=== PATIENT | male | born 1970 | race Caucasian/White ===

== ENCOUNTER 2020-07-18 12:55 | Outpatient (RCR) | payer OTHER, SELFPAY ==
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
--- NOTE | 2020-07-20 15:48 | PCPTNOTE ---
Due to the continued pain, weakness, decreased range of motion, and poor activity tolerance, I would recommend Mr. Meza remain off work for 2 more weeks to allow time for rehab through Physical Therapy. Please feel free to contact me with any questions or concerns regarding his current condition or care. Thank you, Jamey Nazario DPT
--- NOTE | 2020-08-04 15:44 | PCPTNOTE ---
To whom it may concern, Mr. Meza is still experiencing significant pain in the neck with AROM activities that will be performed on a daily basis should he return to work at this time. It is my suggested medical opinion to withhold Mr. Meza from returning to work until the conclusion of his skilled PT treatments. Thank you, Jamey Nazario DPT
--- NOTE | 2020-09-01 09:48 | PCPTNOTE ---
09/01/20- pt did not show for 8am appointment today. pt was called and vm left to reschedule.-
--- NOTE | 2020-11-07 13:24 | PCPTNOTE ---
11/07/20 - patient has not been to therapy in over 2 months. he has been dc'd from skilled PT services and all progress towards goals will be taken from his most recent evaluation/note.
== END 2020-08-28 23:59 | disposition home or self-care (01) ==
LOC: CHSPT 12:55
DX: M54.2 Cervicalgia (principal)
CPT/HCPCS: 97014; 97110; 97140; 97161; G0283

== ENCOUNTER 2023-04-24 11:06 | Outpatient (CLI) | payer BC, SELFPAY ==
--- NOTE | ~2023-04-24 | XR_ITS ---
Left Knee Technique: AP, lateral, notch, and sunrise views were obtained. Clinical History: Pain Findings: No fracture or dislocation is seen. Osseous alignment is anatomic. Joint spaces are preserv ed without degenerative or erosive change. Soft tissues are unremarkable. No joint effusion is seen. Impression: Unremarkable left knee radiographs. Reviewed, dictated and finalized at location . Impression: Unremarkable left knee radiographs.
== END 2023-04-24 11:07 ==
PROVIDERS: PCP Family Medicine; Visit Provider Family Medicine
DX: M25.562 Pain in left knee (principal)
CPT/HCPCS: 73564

== ENCOUNTER 2023-05-03 07:25 | Outpatient (CLI) | payer BC, MEDICAID, SELFPAY ==
--- NOTE | ~2023-05-03 | MR_ITS ---
MRI of the left knee Clinical history: Internal derangement Technique: Coronal proton density and proton density-weighted images, sagittal proton-density and T2 fat-sat images, and axial proton-density fat-saturated images were acquired. Findings: Anterior and posterior cruciate ligaments are intact. Medial collateral ligament and the la teral collateral ligament complex are intact. Popliteus tendon is intact. No lateral meniscal tear identified. There is a vertical tear of the posterior horn of the medial men iscus. Articular cartilage is well preserved throughout the knee. Bone marrow signals are unremarkable. Extensor mechanism is intact. No joint effusion or Sheppard's cyst. Impression: Vertical tear of the posterior horn of the medial meniscus. Reviewed, dictated and finalized at location M. Impression: Vertical tear of the posterior horn of the medial meniscus.
== END 2023-05-03 07:26 | disposition home or self-care (01) ==
PROVIDERS: PCP Family Medicine; Visit Provider Family Medicine
DX: S83.242A Other tear of medial meniscus, current injury, left knee, initial encounter (principal); X58.XXXA Exposure to other specified factors, initial encounter
CPT/HCPCS: 73721

== ENCOUNTER 2023-05-12 07:53 | Outpatient (CLI) | payer BC, MEDICAID, SELFPAY ==
--- NOTE | 2023-05-12 07:55 | ECG_ITS ---
Measurements Intervals [place] Rate: 84 P: 23 MI: 127 QRS: 28 QRSD: 96 T: 30 QT: 344 QTc: 407 Interpretive Statements SINUS RHYTHM NORMAL ECG NO PREVIOUS ECG AVAILABLE FOR COMPARISON Electronically Signed On 05-12-2023 17:28:01 CDT by Eliseo Stone M.D.
[2023-05-12 08:48] LABS: Anion Gap 8 mmol/L (8-16); Blood Urea Nitrogen 15 mg/dL (7-18); Calcium 9.2 mg/dL (8.5-10.1); Carbon Dioxide 30 mmol/L (21-32); Chloride 105 mmol/L (98-108); Estimated Glomerular Filt Rate > 60; Glucose 84 mg/dL (70-99); Osmolality Calculated 295 mOsm/kg (285-295); Potassium 4.4 mmol/L (3.5-5.1); Sodium 143 mmol/L (136-145)
== END 2023-05-12 07:54 | disposition home or self-care (01) ==
PROVIDERS: PCP Family Medicine; Visit Provider Anesthesiology
DX: Z01.818 Encounter for other preprocedural examination (principal); E11.9 Type 2 diabetes mellitus without complications
CPT/HCPCS: 36415; 80048; 93005

== ENCOUNTER 2023-06-21 07:51 | Outpatient (CLI) | payer BC, MEDICAID, SELFPAY ==
[2023-06-21 08:08] LABS: Basophils Absolute Auto 0.03 K/mm3 (0.00-0.10); Basophils Percent Auto 0.5 % (0.0-1.0); Eosinophils Absolute Auto 0.19 K/mm3 (0.02-0.50); Eosinophils Percent Auto 3.4 % (1.0-6.0); Hemoglobin 14.1 g/dL (14.0-18.0); Immature Granulocyte Absolute 0.01 K/mm3 (0.00-0.00); Immature Granulocyte Percent A 0.2 % (0.0-0.0); Lymphocytes Absolute Auto 2.13 K/mm3 (1.10-4.50); Lymphocytes Percent Auto 37.8 % (18.0-42.0); Mean Corpuscular HGB Conc 34.4 g/dL (32.0-36.0); Mean Corpuscular Hemoglobin 29.4 pg (27.0-31.0); Mean Corpuscular Volume 85.6 fL (78.0-102.0); Mean Platelet Volume 9.3 fl (8.7-11.0); Monocytes Absolute Auto 0.45 K/mm3 (0.10-0.90); Neutrophils Absolute Auto 2.8 K/mm3 (1.7-7.2); Neutrophils Percent Auto 50.1 % (50.0-70.0); Platelet Count Result 299 K/mm3 (150-420); Red Blood Count 4.79 M/mm3 (4.70-6.10); Red Cell Distribution Width 11.4 % (11.6-14.4); White Blood Count 5.6 K/mm3 (4.8-10.8)
[2023-06-21 08:14] LABS: Creatinine Urine 149.66 mg/dL (40-278); MALB Creatinine Ratio 8.6 mg/g (0-30); Microalbumin Urine Random < 13.0 mg/L
[2023-06-21 08:26] LABS: Rheumatoid Factor Screen Negative (Negative)
[2023-06-21 08:48] LABS: Alanine Aminotransferase 58 U/L (16-63); Albumin Level 4.3 g/dL (3.4-5.0); Alkaline Phosphatase 68 U/L (46-116); Anion Gap 8 mmol/L (8-16); Aspartate Amino Transferase 29 U/L (15-37); Bilirubin,Total 0.5 mg/dL (0.00-1.00); Blood Urea Nitrogen 18 mg/dL (7-18); Calcium 8.4 mg/dL (8.5-10.1); Carbon Dioxide 29 mmol/L (21-32); Chloride 105 mmol/L (98-108); Cholesterol 150 mg/dL (0-200); Estimated Glomerular Filt Rate > 60; Glucose 85 mg/dL (70-99); HDL Direct 67 mg/dL (40-60); LDL Cholesterol Calculated 73 mg/dL (<130); Osmolality Calculated 294 mOsm/kg (285-295); Prostate Specific Antigen 0.4 ng/mL (< OR = 4.0); Sodium 142 mmol/L (136-145); Total Protein 7.2 g/dL (6.4-8.2); Triglycerides 52 mg/dL (0-150)
[2023-06-21 08:53] LABS: Thyroid Stimulating Hormone Reflex 2.59 u/IU/mL (0.36-3.74)
== END 2023-06-21 07:52 | disposition home or self-care (01) ==
LOC: CHSLAB 07:53
PROVIDERS: PCP Family Medicine; Visit Provider Family Medicine
DX: E03.9 Hypothyroidism, unspecified (principal); E11.9 Type 2 diabetes mellitus without complications; R53.83 Other fatigue; Z12.5 Encounter for screening for malignant neoplasm of prostate; Z13.220 Encounter for screening for lipoid disorders; Z13.228 Encounter for screening for other metabolic disorders; M25.50 Pain in unspecified joint
CPT/HCPCS: 36415; 80053; 80061; 82043; 83036; 84153; 84443; 85025; 86337; 86430; G0103

== ENCOUNTER 2025-01-22 09:02 | Outpatient (CLI) | payer OTHER, SELFPAY ==
--- OUTSIDE RECORDS SUMMARY | 2025-01-22 09:07 | XMS_ITS | Clinical Summary ---
Author Organization [facility] Address [address] [place] [address] Care Team Providers Care Intellectual Property Lawyer Name Role Phone My Zelaya NP Primary Care Provider [phone] Allergies Active Allergy Reactions Criticality Noted Date Comments Oxycodone Tachycardia 01/16/2022 Medications Armodafinil (NUVIGIL) 150 MG Tab Nuvigil 150 mg tablet 1 tab po q AM Active Continuous Blood Gluc Sensor (FREESTYLE CHETAN 14 DAY SENSOR) Misc * CALLING INS $$225$$$* USE DIRECTED EVERY 14 DAYS 2 Active glipiZIDE 10 MG tablet Take 10 mg by mouth daily. 2 Active HYDROcodone-ac etaminophen 5-325 MG tablet 2 Active insulin glargine (LANTUS) 100 UNIT/ML injection (VIAL) Lantus U-100 Insulin 100 unit/mL subcutaneous solution Active HUMALOG KWIKPEN 200 UNIT/ML Solution Pen-injector INJECT UP TO 60 UNITS DAILY PER SLIDING SCALE DIRECTED 1 Active levothyroxine 100 MCG tablet levothyroxine 100 mcg tablet Active lisinopril 2.5 MG tablet Take 2.5 mg by mouth daily. 2 Active metFORMIN 500 MG tablet Take 500 mg by mouth 2 (two) times daily. 2 Active rosuvastatin 40 MG tablet daily. Active sildenafil 50 MG tablet sildenafil 50 mg tablet Active meclizine 25 MG tablet Take 1 tablet by mouth 3 (three) times daily as needed. 2 Active modafinil 200 MG tablet Take 200 mg by mouth every morning. 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 [employer] Gender Identity Not on file Sexual Orientation Not on file Last Filed Vital Signs Vital Sign Reading Time Taken Comments Blood Pressure 119/80 03/05/2022 2:30 PM CDT Pulse 90 03/05/2022 2:30 PM CDT Temperature 36.6 C (97.9 F) 03/05/2022 10:00 AM CDT Respiratory Rate 18 03/05/2022 2:30 PM CDT Oxygen Saturation 98% 03/05/2022 2:30 PM CDT Inhaled Oxygen Concentration - - Weight 73.5 kg (162 lb 0.6 oz) 03/05/2022 10:00 AM CDT Height 175.3 cm (5' 9 ) 03/05/2022 10:00 AM CDT Body Mass Index 23.93 03/05/2022 10:00 AM CDT Plan of Treatment Health Maintenance Due Date Last Done Comments Colorectal Cancer Screening Colonoscopy (10 Years) 1972 Annual Physical 1975 PHQ-2 (Physician [place]) 1984 Hepatitis C 1990 Hepatitis B Vaccines (1 of 3 - 19+ 3-dose series) 1991 Zoster Vaccines (1 of 2) 2022 COVID-19 Vaccine (3 - 2023-2 5 season) 2024 07/28/2021, 07/07/2021 Influenza Adult (#1) 2024 10/29/2018, 09/25/2017 PHQ-2 (Physician [place]) 12/01/2024 DTaP, Tdap and Td Vaccines ( 3 - Td or Tdap) 09/25/2027 09/25/2017, 11/02/2012 Meningococcal B Vaccine Aged Out No l onger eligible based on patient's age to complete this topic Meningococcal Vaccine Aged Out No renee arlen eligible based on patient's age to complete this topic Pneumococcal Vaccine: Pediatrics (0 to 5 Years) and At-Risk Patients (6 to 64 Years) Aged Out No longer eligible b ased on patient's age to complete this topic RSV Immunizations Under 20 Months Aged Out No longer eligible b ased on patient's age to complete this topic Insurance [place] [address] Care Teams Intellectual Property Lawyer Relationship Specialty Start Date End Date My Zelaya NP [facility] [place] [address] PCP - General NURSE PRACTITIONER 01/16/22
--- OUTSIDE RECORDS SUMMARY | 2025-01-22 09:07 | XMS_ITS | Encounter Summary ---
Author Organization [facility] Address [facility] [place] [address] Care Team Providers Care Locator Specialist Name Role Phone My Zelaya NP Primary Care Provider [phone] Encounter Details Date Type Department Care Team (Late st Contact Info) Description 01/29/2022 Telephone [facility] Pre Access Team [address] [place] [address] My Zelaya NP [address] [place] [address] Social History Tobacco Use Types Packs/Day Years Used Date Smoking Tobacco: Never Smokeless Tobacco: Never Sex and Gender Information Value Date Recorded Sex Assigned at Not on file 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 No / Unsure 01/30/2022 9:12 AM HEADING MAKER documented as of this encounter Plan of Treatment Not on file documented as of this encounter Visit Diagnoses Not on filedocumented in this encounter Care Teams Locator Specialist Relationship Specialty Start Date End Date My Zelaya NP [facility] [place] [address] PCP - General NURSE PRACTITIONER 01/16/22 documented as of this encounter
--- OUTSIDE RECORDS SUMMARY | 2025-01-22 09:07 | XMS_ITS | Encounter Summary ---
Author Organization [facility] Address [facility] [place] [address] Care Team Providers Care Candy Butcher Name Role Phone My Zelaya NP Primary Care Provider Encounter Details Date Type Department Care Team (Late st Contact Info) Description 02/28/2022 Pre-Procedure Call [facility] [place] [address] Gustavo Mora MD [address] [place] [address] Social History Tobacco Use Types Packs/Day Years Used Date Smoking Tobacco: Never Smokeless Tobacco: Never Sex and Gender Information Value Date Recorded Sex Assigned at Not on file 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 No / Unsure 01/30/2022 9:12 AM CARTON WAXING MACHINE OPERATOR documented as of this encounter Plan of Treatment Not on file documented as of this encounter Visit Diagnoses Not on filedocumented in this encounter Care Teams Candy Butcher Relationship Specialty Start Date End Date My Zelaya NP [address] [place] [address] PCP - General NURSE PRACTITIONER 01/16/22 documented as of this encounter
--- OUTSIDE RECORDS SUMMARY | 2025-01-22 09:07 | XMS_ITS | Referral Summary ---
Author Organization [facility] Virtual Care Address [address] [place] [address] Phone Care Team Providers Care Wealth Management Advisor Name Role Phone No, Physician Primary Care Provider [phone] Allergies No known active allergies Medications amitriptyline (ELAVIL) 50 mg tablet Take 50 mg by mouth nightly. at bedtime. 0 7 Active ONETOUCH ULTRA TEST strip USE DIRECTED 3 TIMES A DAY 7 Active glipiZIDE (GLUCOTROL) 10 mg tabletIndicati ons:type 2 diabetes mellitus Take 10 mg by mouth daily. 5 7 Active LANTUS 100 unit/mL injection INJECT 50 UNITS SUBCUTANEOUSLY DAILY AT BEDTIME 0 7 Active HUMALOG KWIKPEN 100 unit/mL insulin pen USE ON SLIDING SCALE DIRECTED UP TO MAX OF 20 UNITS DAILY 7 Active levothyroxine (SYNTHROID, LEVOTHROID) 100 mcg tablet Take 100 mcg by mouth daily. 7 Active lisinopril (PRINIVIL,ZEST RIL) 2.5 mg tablet Take 2.5 mg by mouth daily. 5 7 Active metFORMIN (GLUCOPHAGE) 500 mg tablet Take 500 mg by mouth 2 (two) times a day. 5 7 Active simvastatin (ZOCOR) 40 mg tablet Take 40 mg by mouth nightly. at bedtime. 5 7 Active methylPREDNISo lone (MEDROL, MAGDALENE,) 4 mg Dosepack follow package directions 21 tablet 8 Active Active Problems No known active problems Social History Tobacco Use Types Packs/Day Years Used Date Smoking Tobacco: Never Smokeless Tobacco: Never Personal Safety Answer Date Recorded Getting School Help Needed Not on file 02/14 Sex and Gender Information Value Date Recorded Sex Assigned at Not on file Legal Sex Male 2:24 PM CDT Gender Identity Not on file Sexual Orientation Not on file Last Filed Vital Signs Vital Sign Reading Time Taken Comments Blood Pressure 150/86 02/16/2018 9:07 AM CDT Pulse 92 02/16/2018 9:07 AM CDT Temperature - - Respiratory Rate - - Oxygen Saturation - - Inhaled Oxygen Concentration - - Weight 76.7 kg (169 lb) 02/16/2018 9:07 AM CDT Height 175.3 cm (5' 9 ) 02/16/2018 9:07 AM CDT Body Mass Index 24.96 02/16/2018 9:07 AM CDT Plan of Treatment Not on file Insurance [place] [facility] Care Teams Wealth Management Advisor Relationship Specialty Start Date End Date No, Physician PCP - General 08/13/17
--- OUTSIDE RECORDS SUMMARY | 2025-01-22 09:07 | XMS_ITS | Clinical Summary ---
Author Organization [facility] Virtual Care Address [address] [place] [address] Phone Care Team Providers Care Manager Relationship Name Role Phone No, Physician Primary Care Provider [phone] Allergies No known active allergies Medications amitriptyline [...] on file Sexual Orientation Not on file Obstetrics History Last Filed Vital Signs Vital Sign Reading [...] Plan of Treatment Not on file Insurance [facility] IN[facility] BEDS AT [facility] OPEN ACCESS Care Teams Manager Relationship Relationship Specialty Start Date End Date No, Physician PCP - General 08/13/17
[2025-01-22 09:43] LABS: MALB Creatinine Ratio 13.3 mg/g (0-30); Microalbumin Urine Random < 13.0 mg/L
[2025-01-22 09:47] LABS: Hemoglobin A1C 8.4 % (<5.7)
[2025-01-22 09:49] LABS: Thyroid Stimulating Hormone Reflex 1.95 u/IU/mL (0.36-3.74)
[2025-01-22 09:53] LABS: Alanine Aminotransferase 105 U/L (16-63); Albumin Level 4.3 g/dL (3.4-5.0); Alkaline Phosphatase 83 U/L (46-116); Anion Gap 8 mmol/L (4-12); Aspartate Amino Transferase 43 U/L (15-37); Bilirubin,Total 0.5 mg/dL (0.00-1.00); Blood Urea Nitrogen 17 mg/dL (7-18); Calcium 9.5 mg/dL (8.5-10.1); Carbon Dioxide 31 mmol/L (21-32); Chloride 105 mmol/L (98-108); Cholesterol 170 mg/dL (0-200); Estimated Glomerular Filt Rate > 60; Glucose 63 mg/dL (70-99); HDL Direct 81 mg/dL (40-60); LDL Cholesterol Calculated 79 mg/dL (<130); Osmolality Calculated 297 mOsm/kg (285-295); Potassium 4.2 mmol/L (3.5-5.1); Prostate Specific Antigen 0.5 ng/mL (< OR = 4.0); Sodium 144 mmol/L (136-145); Total Protein 7.6 g/dL (6.4-8.2); Triglycerides 49 mg/dL (0-150)
== END 2025-01-22 09:03 | disposition home or self-care (01) ==
LOC: CHSLAB 09:05
PROVIDERS: PCP Nurse Practitioner Family; Visit Provider Nurse Practitioner Family
DX: E10.9 Type 1 diabetes mellitus without complications (principal); Z13.228 Encounter for screening for other metabolic disorders; Z13.29 Encounter for screening for other suspected endocrine disorder; Z13.220 Encounter for screening for lipoid disorders; Z12.5 Encounter for screening for malignant neoplasm of prostate
CPT/HCPCS: 36415; 80053; 80061; 82043; 83036; 84153; 84443; G0103

== ENCOUNTER 2025-11-19 09:03 | Outpatient (CLI) | payer OTHER, SELFPAY | END 2025-11-19 09:04 | disposition home or self-care (01) | LOC: CHSIMG 09:04 | PROVIDERS: PCP Nurse Practitioner Family; Visit Provider Nurse Practitioner Family | DX: R51.9 Headache, unspecified (principal) | CPT/HCPCS: 99199 ==